=== PATIENT | male | born 1965 | race African-American/Black ===

== ENCOUNTER 2018-10-21 14:16 | Inpatient (IN) | payer MEDICAID ==
[~2018-10-21] VITALS: Ht 185.4 cm; Wt 86.2 kg
[2018-10-21 14:21] VITALS: Ht 185.4 cm; Wt 86.2 kg
--- NOTE | 2018-10-21 14:35 | NUR ---
PT PRESENTS TO THE ED TODAY WITH C/C OF CHEST PAIN. PT REPORTS THAT HE RAN OUT OF HIS BP MEDS X4 DAYS AGO AND HAS HAD SIMILAR EPISODES LIKE THIS ONE IN THE PAST. PT C/O CHEST PRESSURE, "MY HANDS SWELL UP", DIZZINESS, AND "LINES GOING THROUGH MY VISION" WHEN PT HAS BEEN OFF BP MEDS FOR SEVERAL OF DAYS. TODAY, WAS PT'S FIRST EPISODE OF CHEST DISCOMFORT AND DIZZINESS. PT CURRENTLY DENIES ANY CHEST PAIN, NO DIZZINESS, NO SOB. PT IS AWAKE AND ALERT, RESP E/U, SPEAKING IN FULL CLEAR SENTENCES, NAD NOTED. AWAITING MSE.
[2018-10-21 15:00] LABS: BASOPHIL % 0.5 % (0-2); PLATELET COUNT 257 x10^3mcL (130-400); RED CELL DISTRIBUTION WIDTH 13.6 % (11.5-14.5)
--- NOTE | 2018-10-21 15:05 | NUR ---
STATES NO MORE CP POST NTG AND MEDS.LAP WELDER IN SR NO ECTOPY
[2018-10-21 15:21] LABS: CALCIUM 9.3 mg/dL (8.5-10.1); CARBON DIOXIDE 29.5 mmol/L (21-32); CHLORIDE SERUM 106 mmol/L (98-107); CREATININE SERUM 1.2 mg/dL (0.7-1.3); GFR1 > 60 mL/min; GLUCOSE SERUM 91 mg/dL (74-106); POTASSIUM SERUM 3.9 mmol/L (3.5-5.1); SODIUM SERUM 142 mmol/L (136-145)
[2018-10-21 15:25] LABS: ALBUMIN 3.7 g/dL (3.4-5.0); ALKALINE PHOSPHATASE 62 U/L (46-116); ALT/SGPT 23 U/L (16-63); AST/SGOT 23 U/L (15-37); BILIRUBIN TOTAL 0.6 mg/dL (0.20-1.00); TOTAL PROTEIN, SERUM 6.9 g/dL (6.4-8.2)
[2018-10-21] MEDS ORDERED: ZESTRIL20 MG PO (16:46)
[2018-10-21] MEDS ORDERED: METOPROLOL TART50 MG PO (16:47)
[2018-10-21 17:33] LABS: CHOLESTEROL/HDL RATIO 2.6; MAGNESIUM 1.9 mg/dL (1.8-2.4); PHOSPHOROUS 3.1 mg/dL (2.5-4.9)
[2018-10-21 17:44] VITALS: BP 150/88
--- NOTE | 2018-10-21 17:51 | NUR ---
RECEIVED PT FROM ER, PT ADMIT FOR UNCONTROLLED B/P CHEST PAIN, PT IS A/O X4, VERBAL RESPONSIVE, ABLE TO TELL WHAT HE NEEDS, C/O HEADACHE 12/10, LUNG SOUND CLEAR BILATERAL, NO COUGH, NO SOB, PT IS ON TELE 17, NSR, DENY ANY CHEST PAIN AT THIS MOMENT, BOWEL SOUND PRESENT ALL 4 QUADRANTS, NO DISTENTION, NO TENDER. PEDAL PULSE PRESENT BOTH FEET, NO EDEMA, IV AT RIGHT FA, NO LEAKING, NO INFILRATION. ALL ADLS ASSIST ALL NEED MET, CALL LIGHT IN REACH, WILL CONTINUE TO MONITOR.
--- NOTE | 2018-10-21 18:10 | NUR ---
PATIENT C/O OF A HEADACHE, MEDICATED PATIENT WITH TYLENOL PER PROTOCOL(SEE EMAR). WILL CONTINUE TO MONITOR. NO ACUTE CHANGES NOTED, PATIENT IS STABLE. DENIES CHEST PAIN AT THIS TIME. IV TO RAC SALINE LOCK, IV SITE CDI&PATENT, NO S/S OF INFILTRATION. CALL LIGHT WITHIN REACH, BED IN LOW POSITION. WILL ENDORSE REPORT TO NIGHT NURSE.
--- NOTE | 2018-10-21 19:30 | NUR ---
RECIEVED PATIENT AT START OF SHIFT A/O X4, ON TELE 17 NSR, DENIES CHEST PAIN, NO SOB ON RA. IV TO RH IS SALINE LOCKED AND PATENT. USE OF CALL LIGHT REINFORCED. BED LOCKED AND IN LOWEST POSIITON, CALL LIGHT AND BEDSIDE TABLE WITHIN REACH.
[2018-10-21 21:33] VITALS: BP 149/86
--- NOTE | 2018-10-21 21:43 | NUR ---
PATIENT'S HR IS 45, METROPOLOL HELD.
--- NOTE | 2018-10-21 21:44 | NUR ---
PATIENT GIVEN NORCO PER EMAR FOR REPORT OF 9/10 HEADACHE.
[2018-10-22 05:49] VITALS: BP 163/97
--- NOTE | 2018-10-22 06:11 | NUR ---
PATIENT HAD BP OF 163/97 THIS MORNING. METROPOLOL DOSE GIVEN EARLY AT THIS TIME PER EMAR. NORCO ALSO GIVEN PER EMAR GIVEN FOR 01/10 HEADACHE.
--- NOTE | 2018-10-22 06:43 | NUR ---
NO FURTHER EVENTS THIS SHIFT. IV SALINE LOCKED AND PATENT. CALL LIGHT WITHIN REACH. WILL ENDORSE CARE TO MORNING NURSE.
--- NOTE | 2018-10-22 07:00 | NUR ---
RECEIVED BEDSIDE REPORT FROM CASH REGISTER SERVICER NURSE. PATIENT IS STABLE COMFORTABLY RESTING INBEDSIDE CHAIR. PATIENT IS ON ROOM AIR, NO APPARETN ISGNS OF PAIN, SOB, OR RESPIRATORY DISTRESS. PATIENT DENIES DIZZINESS, OR CHEST PAIN. IV TO RFA IS SALINE LOCKED. NO EDEMA OR ERYTHEMA NOTED. CALL LIGHT WITHIN REACH, BED IN LOW POSITION, QUESTIONS AND CONCERNS ADDRESSED, SAFETY PRECAUTIONS IN PLACE.
[2018-10-22 07:28] LABS: BASOPHIL % 0.5 % (0-2); PLATELET COUNT 280 x10^3mcL (130-400); RED CELL DISTRIBUTION WIDTH 14.1 % (11.5-14.5)
[2018-10-22 07:51] LABS: CALCIUM 9.4 mg/dL (8.5-10.1); CHLORIDE SERUM 105 mmol/L (98-107); CREATININE SERUM 1.3 mg/dL (0.7-1.3); GFR1 > 60 mL/min; GLUCOSE SERUM 89 mg/dL (74-106); POTASSIUM SERUM 4.7 mmol/L (3.5-5.1); SODIUM SERUM 143 mmol/L (136-145)
--- NOTE | 2018-10-22 08:51 | NUR ---
ADMINISTERED MEDICATION PER EMAR. PATIENT EDUCATED ON NEED FOR MEDICATION WELL ADVERSE EFFECTS TO REPORT. PATIENT TOLORATED WELL. VERBALIZED UNDERSTANDING. QUESTIONS AND CONCERNS ADDRESSED. PATIENT DENIES OTHER NEEDS AT THIS TIME. SAFETY PRECAUTIONS IN PLACE.
[2018-10-22 10:05] VITALS: BP 150/94
--- NOTE | 2018-10-22 10:10 | NUR ---
ADMINISTERED MEDICATION PER EMAR. PATIENT EDUCATED ON NEED FOR MEDICATION WELL ADVERSE EFFECTS TO REPORT. PATIENT TOLORATED WELL. VERBALIZED UNDERSTANDING. QUESTIONS AND CONCERNS ADDRESSED. PATIENT DENIES OTHER NEEDS AT THIS TIME. SAFETY PRECAUTIONS IN PLACE. PATIENT BP 176/97
--- NOTE | 2018-10-22 11:23 | NUR ---
ECHOCARDIOGRAM COMPLETED.
--- NOTE | 2018-10-22 13:02 | NUR ---
PT C/O OF PAIN 02/09, REQUESTING PAIN MEDICATION AT THIS TIME. MEDICATED PER EMAR. PER DR MONTIEL WITH CURRENT VITALS. RESPIRATIONS EQUAL AND UNLABORED. ON RA, DENIES SOB. BED IN LOW POSITION. CALL LIGHT IN REACH. FAMILY PRESENT AT BEDSIDE. WILL CONTINUE TO MONITOR
[2018-10-22 13:05] VITALS: BP 154/95
--- NOTE | 2018-10-22 14:35 | NUR ---
PATIENT IS STABLE, NO APPARETN SIGNS OF PAIN, SOB, OR RESPIRATORY DISTRESS. PATIENT STATES PAIN MEDICATION WAS EFFECTIVE. PATIENT DENIES CHEST PAIN. PATIENT RESTING COMFORTABLY IN BED. BED IN LOW POSITION, BED RAILS UP X2. CALL LIGHT WITHIN REACH. PATIENT DEINES OTHER NEEDS AT THIS TIME. QUESTIONS AND CONCERNS ADDRESSED, SAFETY RPECAUTIONS IN PLACE.
--- NOTE | 2018-10-22 16:35 | NUR ---
PATIENT IS STABLE, NO APPARETN SIGNS OF PAIN, SOB, OR RESPIRATORY DISTRESS. PATIENT IS RESTING COMFORTABLY IN BED. CALL LIGHT WITHIN REACH. BED IN LOW POSITION, BEDRAILS UP X2. PATIENT DEINIES OTHER NEEDS AT THIS TIME. QUESTIONS AND CONCERNS ADDRESSED, SAFETY PRECAUTIONS IN PLACE.
[2018-10-22 17:10] VITALS: BP 156/95
--- NOTE | 2018-10-22 18:55 | NUR ---
PATIENT IS STABLE, NO APPARENT SIGNS OF PAIN, SOB, OR RESPIRATORY DISTRESS. PATIENT IS RESTING COMFORTABLY IN BED TALKING TO FAMILY ON THE PHONE. CALL LIGHT WITHIN REACH, BED IN LOW POSITION, SAFETY PRECAUTIONS IN PLACE. QUESTIONS AND CONCERNS ADDRESSED. WILL ENDORSE CARE TO SHELL MAKER LOCKSTITCH NURSE.
--- NOTE | 2018-10-22 19:20 | NUR ---
ENDORSED CARE TO MANAGER PROJECT NURSE TYREE.
--- NOTE | 2018-10-22 19:57 | NUR ---
PT AWAKE, ALERT, ORIENTED X4, C/O SOME HEADACHE, AND ALSO STATED THAT HE HASSOME DIZZINESS. BLOOD PRESSURE INITIALLY CHECKED, SBP 170. BREATH SOUNDS CLEAR THROUGHLOUT LUNG MIRANDA, RESP. EVEN, UNLABORED,NO SOB NOTED. PT. ON RA. PT. REFUSED TO HAVE PHYSICAL ASSESSMENT DONE. CONCERNED ABOUT HIS ELEVATED BLOOD PRESSURE LEVEL. STATED, " DO WE HAVE TO GO THROUGH THIS SHIT AGAIN". I ASKED PT. IF HE DID NOTWANT THE ASSESSEMENT DONE, HE STATED NO. HE JUST WANT TO SEE THE DOCTOR CONCERNING HIS BP. AND ALSO WAS STATED THAT HE DOES NOT WANT THE PO MED TONIGHT, HE WANTS THE IV MED FOR BP.
[2018-10-22 20:25] VITALS: BP 170/107
--- NOTE | 2018-10-22 20:47 | NUR ---
PT.'S BLOOD PRESSURE 170/106, PRN HYDRALAZINE GIVEN ORDERED. CARDIAC STRIP RAN PER PROTOCOL. BLOOD PRESSURE RECHECKED, STILL ELEVATED 177/106. HR 50. PT. REFUSED TO HAVE MEDICATION FOR LAO, STATED 02/09. ALSO REFUSED MOSIT WET WASH CLOTH FOR FOREHEAD. LASER PRINTING OPERATOR CRYPTOGRAPHIC MACHINE OPERATOR PAGED.
--- NOTE | 2018-10-23 01:42 | NUR ---
PT. SITTING UP AT BEDSIDE. TALKING ON PHONE.SINUS MARICRUZ ON TELE MONITOR. NO COMPLAINTS AT THIS TIME. CALL LIGHT WITHIN REACH.
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
--- NOTE | 2018-10-23 05:02 | NUR ---
ONE TIME DOSE OF ADALAT 60MG PO GIVEN, ALSO ONE TIME DOSE OF NITRO SL ALSO GIVEN. BLOOD PRESSURE RECHECKED, 154/95, HR 59. O2 SAT. 97%. PT. GIVEN COOL MOIST WASH CLOTH TO THE FOREHEAD. PT. STATED NO MORE CHESTPAIN AT THIS TIME. PT. ENCOURAGED TO SIT AT EDGE OF BED BEFORE GETTING OOB TO DECREASE HIS EPISODES OF DIZZINESS. PT.HAD SLIGHT HEADACHE INITIALLY AFTER NITRO SL, BUT IS NOW "GOOD" PER PT. DENIES THAT NEED FOR TYLENOL. CALL LIGHT WITHIN REACH. WILL CONTINUETO MONITOR.
[2018-10-23 05:37] VITALS: BP 154/95
--- NOTE | 2018-10-23 06:53 | NUR ---
PT. DOZING AT THIS TIME, SB ON MONITOR. NO FURTHER C/O CHESTPAIN, NO C/O HEADACHE. IV HEPLOCKED, INTACT. CALL LIGHT WITHIN REACH. WILL ENDORSE PT. CARE TO INCOMING NURSE
[2018-10-23 07:31] LABS: BASOPHIL % 0.4 % (0-2); PLATELET COUNT 266 x10^3mcL (130-400); RED CELL DISTRIBUTION WIDTH 14.3 % (11.5-14.5)
[2018-10-23 07:49] LABS: CARBON DIOXIDE 25.6 mmol/L (21-32); CHLORIDE SERUM 105 mmol/L (98-107); CREATININE SERUM 1.1 mg/dL (0.7-1.3); GFR1 > 60 mL/min; GLUCOSE SERUM 93 mg/dL (74-106); POTASSIUM SERUM 3.8 mmol/L (3.5-5.1); SODIUM SERUM 140 mmol/L (136-145)
--- NOTE | 2018-10-23 08:14 | NUR ---
AAO TIMES 4. TELE # [address] SB TO SR. LUNGS CTA. NO SOB. O2 SAT ON RA 97%. BS'S ACTIVE TIMES 4. DICKSON STRONG. PLEASANT, COOPERATIVE. CALM THIS MORNING. IV SITE RFA CDI. PERIPHERAL PULSES PALPABLE. NO EDEMA. SCD BLE. NO C/O PAIN. BP 154/95 THIS AM, NOC SHIFT ENTERED.
[2018-10-23 09:44] VITALS: BP 152/88
[2018-10-23 13:13] VITALS: BP 162/99
--- NOTE | 2018-10-23 17:39 | NUR ---
I CALLED DR HUGO TO NOTIFY HIM THAT I WAS UNABLE TO GIVE THE LOPRESSOR 50 MG PO THIS AM BECAUSE HIS HEART RATE DROPPED TO 47 THIS AM, SO I HELD IT. BUT AT THIS TIME, HIS BP IS 165/104 AND HR OF 61. I TOLD HIM DR OLIVEIRA CLEARED HIM CARDIAC ABAD, BUT HE DIDNT KNOW ABOUT THE BP. DR HUGO SAID HE WOULD ADJUST HIS BP MEDICATIONS ACCORDINGLY.
[2018-10-23 18:13] VITALS: BP 149/90; BP 155/96
--- NOTE | 2018-10-23 18:14 | NUR ---
HYDRALAZINE 10 MG IVP GIVEN AT 1730 FOR BP OF 165/104. AT 1810 HIS BP IS 149/90, HR 57, MAP OF 117.
--- NOTE | 2018-10-23 18:17 | NUR ---
AAO TIMES 4. TELE # 17 SB. C/O HEADACHE, GAVE TYLENOL 650 MG PO AT 1732. NO SOB. BP NOW 149/90, HR 57. SL TO RFA PATENT, CDI. COOPERATIVE AND PLEASANT. AMBULATORY. GOOD APPETITE. HE IS WATCHING TV.
--- NOTE | 2018-10-23 20:05 | NUR ---
PT. AWAKE, ALERT, ORIENTED X4. C/O HEADACHE, STATED THAT NOTHING WORKED FOR HIS HEADACHE THROUGHOUT THE DAY. DOCTOR AIR POLLUTION INSPECTOR WAS PAGED, DR. MARSH, RECEIVED PRN ORDER FOR TORADOL 30MG IVP. MEDICATION FOR PAIN LEVEL, LAO, 02/09. WILL MONITOR. DENIES ANY DIZZINESS AT THIS TIME. BREATH SOUNDS CLEAR THROUGHOUT LUNG MIRANDA, RESP. EVEN, UNLABORED. NO SOB NOTED. PT. ON RA. ABD. SOFT AND FLAT, BOWEL SOUNDS ACTIVE. NO C/O ABD. PAIN OR NAUSEA. NO EDEMA NOTED EXTREMITIES. PEDAL PULSES STRONG. SKIN INTACT THROUGHOUT. CALL LIGHT WITHIN REACH.
[2018-10-23 21:11] VITALS: BP 143/91
--- NOTE | 2018-10-23 23:28 | NUR ---
PT. C/O HEADACHE AND INSOMNIA BROUGHT ON BY SUDDEN LOUD SHOUTING FROM ANOTHER PATIENT. PRN NORCO GIVEN. PT.'S DOOR PULLED CLOSED. CALL LIGHT WITHIN REACH.
--- NOTE | 2018-10-24 05:21 | NUR ---
PT. AWAKE, C/O HAVING COLD SWEAT THROUGHOUT THE NIGHT. PT. STATED THAT HE RECEIVED A NEW MEDICATION FOR PAIN LAST NIGHT AND BELIEVES THAT HE HAD A REACTION TO THE MEDICATION AND ALSO BELIEVES THAT THE MEDICATION CAUSED HIS BLOOD PRESSURE TO BE ELEVATED. EARLY DOSE OF NORVASC AND HCTZ GIVEN. NO RASHES OR HIVES NOTED THROUGHOUT NIGHT. NO RESP DISTRESS THROUGHOUT NIGHT, NO C/O SOB. PT. DOES NOT APPEAR TO BE IN ANY DISTRESS. WILL NOTIFY
[2018-10-24 05:30] VITALS: BP 170/105
--- NOTE | 2018-10-24 05:37 | NUR ---
PT. C/O HEADACHE, PRN TYLENOL GIVEN ORDERED. WILL MONITOR.
--- NOTE | 2018-10-24 07:01 | NUR ---
BLOOD PRESSURE REPEATED, NOW 143/95
--- NOTE | 2018-10-24 07:42 | NUR ---
REPORT TAKEN FROM MANUFACTURING MAINTENANCE MANAGER NURSE AT THE BEDSIDE, PT AWAKE AND RESTING COMFORTABLY AT THIS TIME, REPORTS MILD HEADACHE WHICH HE WAS MEDICATED FOR THIS MORNING, BP IS STABLE AT THIS TIME, WILL CONTINUE TO MONITOR.
[2018-10-24 08:15] LABS: CALCIUM 10.4 mg/dL (8.5-10.1); CARBON DIOXIDE 24.5 mmol/L (21-32); CREATININE SERUM 1.4 mg/dL (0.7-1.3)
[2018-10-24 09:42] VITALS: BP 140/104
[2018-10-24] MEDS ORDERED: ZESTRIL20 MG PO (12:26)
[2018-10-24] MEDS ORDERED: NOR10 PO (12:27)
[2018-10-24] MEDS ORDERED: HYDROCHLOROTHIA25 MG PO (12:27)
[2018-10-24 13:24] VITALS: BP 140/104
--- NOTE | 2018-10-24 13:53 | NUR ---
PER PROVIDER ORDER, PT DISCHARGED COMPLETED. PT SIGNED DC PAPERWORK, DC PLAN REVIEWED WITH THE PT AND PT VERBALIZED UNDERSTANDING. IN DC'D FROM RIGHT FA WITH CATH INTACT, PRESSURE APPLIED TO SITE FOR 2 MINUTES, BLEEDING CONTROLLED, SITE DRESSED WITH GUAZE AND COBAN. PT ADVISED TO CALL THE NURSE WHEN HIS RIDE ARRIVES, LEFT ON TELE TILL READY TO BE TAKING TO DC OFFICE. WILL CONTINUE TO MONITOR TILL THAT TIME.
--- NOTE | 2018-10-24 14:09 | NUR ---
PT SISTER AT THE BEDSIDE TO TAKE THE PT HOME, TELE NUMBER 17 RETURNED TO [place] STATION, PT TAKEN TO DC OFFICE BY JAZMYN FOSTER.
--- NOTE | 2018-10-24 14:15 | NUR ---
PT AMBULATORY AT TIME OF DC
--- NOTE | 2018-10-24 14:57 | NUR ---
Discount pharmacy card and list to low cost medical clinics given to patient by Leigha.
== END 2018-10-24 14:09 | disposition home or self-care (01) | DRG 199 ==
LOC: ED 14:16 → DU 16:46
PROVIDERS: Emergency Medicine; ADMIT General Practice
DX: I16.0 Hypertensive urgency (principal); N17.0 Acute kidney failure with tubular necrosis; M94.0 Chondrocostal junction syndrome [Tietze]; I48.91 Unspecified atrial fibrillation; F12.10 Cannabis abuse, uncomplicated; Z68.23 Body mass index [BMI] 23.0-23.9, adult; Z87.891 Personal history of nicotine dependence
CPT/HCPCS: 83880; 99406; G0378; J0360; J1885; Q0092